=== PATIENT | male | born 1945 | race Caucasian/White ===

== ENCOUNTER 2018-12-01 02:39 | Emergency (ER) | payer BC, MEDICARE ==
[~2018-12-01] VITALS: Ht 175.3 cm; Wt 85.3 kg
--- NOTE | 2018-12-01 03:02 | NUR ---
[place] FROM STREET. TO ER BED 8. AAOX4. NO RESP DISTRESS NOTED. C/O AICD FIRING. PER PT, HE SIDE SWIPED SEVERAL CAR. WHEN HE WAS OUTSIDE OF HIS CAR HIS AICD FIRED. HE CALLED THE [employer] HELPER BECAUSE OF THE FIRING OF AICD. PT REPORT HE HAS AFIB, REPORTS THAT ON MONDAY LAST WEEK HIS AICD WAS ADJUSTED TO FIRE AT 150 TO FIRE AT 139. DENIES ANY CHEST PAIN. DENIES KO. AT BEDSIDE. PT PLACED ON MONITOR. EKG DONE. BLOOD DRAWN. PT CAME IN WITH IV ON L HAND 20G.
[2018-12-01 03:05] LABS: BASOPHILS # (AUTO) 0.1 /CMM (0.0-0.2); BASOPHILS % (AUTO) 0.7 % (0.0-2.0); EOSINOPHILS % (AUTO) 2.3 % (0.0-6.0); HEMATOCRIT 49 % (39-51); HEMOGLOBIN 16.8 g/dL (13.5-17.5); LYMPHOCYTES # (AUTO) 2.3 /CMM (0.8-4.8); LYMPHOCYTES % (AUTO) 26.5 % (20.0-44.0); MEAN CORPUSCULAR HGB CONC 35 g/dl (31.0-36.0); MEAN CORPUSCULAR VOLUME 96 fL (80-96); MONOCYTES # (AUTO) 0.8 /CMM (0.1-1.30); MONOCYTES % (AUTO) 9.7 % (2.0-12.0); NEUTROPHILS # (AUTO) 5.3 /CMM (1.8-8.9); NEUTROPHILS % (AUTO) 60.8 % (43.0-81.0); PLATELET COUNT (AUTO) 180 /CMM (150-450); WHITE BLOOD COUNT (AUTO) 8.7 K/uL (4.3-11.0)
--- NOTE | 2018-12-01 03:05 | NUR ---
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 BALTAZAR HERNÁNDEZ: NO RESPONSE AT THIS TIME. WILL CALL BACK SHORTLY
[2018-12-01 03:08] LABS: CALCIUM, SERUM 7.6 mg/dL (8.5-10.1); CARBON DIOXIDE 19 mmol/L (21-32); CHLORIDE 109 mmol/L (98-107); CREATININE 1.1 mg/dL (0.6-1.3); GLUCOSE 84 mg/dL (74-106); POTASSIUM 3.1 mmol/L (3.5-5.1); SODIUM SERUM 142 mmol/L (136-145); UREA NITROGEN, BLOOD 20 mg/dL (7-18)
--- NOTE | 2018-12-01 03:15 | NUR ---
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 NO RESPONSE.
[2018-12-01] MEDS ORDERED: POTASSIUM CHLORIDE 20 MEQ TAB.PRT.SR PO ONE ×2 (04:00→04:11)
--- NOTE | 2018-12-01 04:50 | NUR ---
Patient discharged to home in stable condition. Written and verbal after care instructions given. Patient verbalizes understanding of instruction.IV removed. Catheter intact and site benign. Pressure and 4x4 applied to site. No bleeding noted. Pt ambulatory with a steady gait
[2018-12-01 04:51] VITALS: BP 147/67
== END 2018-12-01 04:51 | disposition home or self-care (01) ==
LOC: ER 02:41
DX: E87.6 Hypokalemia (principal); I48.91 Unspecified atrial fibrillation; I10 Essential (primary) hypertension; F17.200 Nicotine dependence, unspecified, uncomplicated; Z95.810 Presence of automatic (implantable) cardiac defibrillator; Z98.890 Other specified postprocedural states; Z95.1 Presence of aortocoronary bypass graft
CPT/HCPCS: 36415; 71045-TC; 80048-TC; 83735-TC; 84484-TC; 85025-TC